=== PATIENT | female | born 1995 | race Caucasian/White ===

== ENCOUNTER 2021-02-06 10:41 | Emergency (ER) | payer OTHER ==
[~2021-02-06 10:41] MED LIST: AUGMENTIN 875-1 EACH PO; BENTYL 20MG TAB20 MG PO; IBUPROFEN800 MG PO; LODINE CAP 300300 MG PO; ZOFRAN ODT 4 MG4 MG PO
[2021-02-06 12:33] LABS: HEMOGLOBIN 14.3 gm/dl (12.3-15.3); RED BLOOD COUNT 5.04 M/UL (4.00-5.10); WHITE BLOOD COUNT 17.7 K/UL (4.5-11.0)
[2021-02-06 12:50] LABS: BUN/CREATININE RATIO 12 (0-10)
== END 2021-02-06 19:00 | disposition home or self-care (01) ==
LOC: ER1 10:41
PROVIDERS: Physician Assistant
DX: R10.11 Right upper quadrant pain (principal); R10.12 Left upper quadrant pain; R11.2 Nausea with vomiting, unspecified; Z90.49 Acquired absence of other specified parts of digestive tract; F17.200 Nicotine dependence, unspecified, uncomplicated
CPT/HCPCS: 80053; 83690; 85025; 99284